=== PATIENT | female | born 1965 | race Two or more races ===

== ENCOUNTER 2024-07-17 21:15 | Emergency (ER) | payer OTHER ==
[~2024-07-17] VITALS: Ht 157.5 cm; Wt 68.9 kg
[2024-07-17] MEDS ORDERED: CEFTRIAXONE SODIUM 1,000 MG VIAL IM STA (21:53)
[2024-07-17] MEDS ORDERED: KETOROLAC TROMETHAMINE 15 MG VIAL IM STA (21:53)
== END 2024-07-17 22:52 | disposition home or self-care (01) ==
LOC: ER 21:17
DX: K04.4 Acute apical periodontitis of pulpal origin (principal); Z91.013 Allergy to seafood

== ENCOUNTER 2024-07-18 18:48 | Emergency (ER) | payer OTHER ==
[~2024-07-18] VITALS: Ht 167.6 cm; Wt 68.0 kg
[2024-07-18] MEDS ORDERED: PIPERACILLIN/TAZOBACTAM SODIUM 3.375 GM VIAL IV STA (19:58)
[2024-07-18] MEDS ORDERED: VANCOMYCIN HCL 1,000 MG VIAL IV STA (20:01)
[2024-07-18] MEDS ORDERED: DEXTROSE 5 % AND 0.9 % NACL 1,000 ML IV STA (20:03)
[2024-07-18] MEDS ORDERED: KETOROLAC TROMETHAMINE 15 MG VIAL IV SCH (20:15)
[2024-07-18 21:15] LABS: HEMATOCRIT 33.7 % (36.0-45.00); HEMOGLOBIN 11.7 g/dL (12.0-15.00); MEAN CELL VOLUME 84.1 fL (80.00-100.00); MEAN CORPUSCULAR HEMOGLOBIN 29.2 pg (27.00-32.0); MEAN CORPUSCULAR HGB CONC 34.7 g/dl (32.0-36.0); PLATELET COUNT 251 K/uL (150-450); RED BLOOD COUNT 4.01 M/uL (4.00-6.00); RED CELL DISTRIBUTION WIDTH 14.1 % (11.5-14.5)
[2024-07-18 21:27] LABS: PH,URINE 5.5 (5.0-8.0); URINE APPEARANCE Clear; URINE BILIRRUBIN Negative (NEGATIVE); URINE BLOOD Negative; URINE COLOR Yellow; URINE GLUCOSE Negative (NEGATIVE); URINE LEUKOCYTE Negative; URINE NITRATE Negative; URINE PROTEIN Negative (NEGATIVE); URINE UROBILINOGEN 0.2 E.U./dl
[2024-07-18 21:31] LABS: URINE BACTERIA 2774.5 uL (0.0-1933); URINE EPITHELIAL CELLS 66.7 uL (0.0-38.8); URINE RBC 5.6 uL (0.0-20.8); URINE WBC 19.4 uL (0.0-23.2)
[2024-07-18 21:48] LABS: CALCIUM 9.7 mg/dL (8.5-10.1); CREATININE SERUM 0.73 mg/dL (0.55-1.02); GFR 82.17; POTASSIUM 3.83 mEq/L (3.5-5.1)
[2024-07-18 21:52] LABS: URINE CAST 0.45 uL (0.0-1.40); URINE KETONE 40 (NEGATIVE)
[2024-07-19 07:21] VITALS: BP 122/75; O2SAT 100
[2024-07-19] MEDS ORDERED: VANCOMYCIN HCL 1,000 MG VIAL IV ONE (09:15)
[2024-07-19] MEDS ORDERED: DEXAMETHASONE SODIUM PHOSP/PF 10 MG/ML VIAL IV ONE (09:15)
[2024-07-19] MEDS ORDERED: KETOROLAC TROMETHAMINE 15 MG VIAL IV ONE (09:15)
== END 2024-07-19 12:32 | disposition home or self-care (01) ==
LOC: ER 18:50
PROVIDERS: Emergency Medicine
DX: K04.7 Periapical abscess without sinus (principal); Z88.8 Allergy status to other drugs, medicaments and biological substances

== ENCOUNTER → 2024-09-28 | Emergency (ER) | payer OTHER ==
[~2024-09-28] VITALS: Ht 157.5 cm; Wt 62.6 kg
== END | disposition left against medical advice (07) ==
LOC: ER 00:41
DX: Z53.21 Procedure and treatment not carried out due to patient leaving prior to being seen by health care provider (principal)

== ENCOUNTER 2024-11-10 08:09 | Emergency (ER) | payer OTHER ==
[~2024-11-10] VITALS: Ht 157.5 cm; Wt 62.6 kg
[2024-11-10] MEDS ORDERED: ORPHENADRINE CITRATE 30 MG/ML AMPUL IM STA (08:44)
[2024-11-10] MEDS ORDERED: KETOROLAC TROMETHAMINE 15 MG VIAL IM STA (08:44)
[2024-11-10] MEDS ORDERED: ADVIL DUAL ACT1 EACH PO (09:13)
[2024-11-10] MEDS ORDERED: METAXALONE800 MG PO (09:13)
== END 2024-11-10 09:59 | disposition home or self-care (01) ==
LOC: ER 08:11
DX: M54.42 Lumbago with sciatica, left side (principal); Z88.8 Allergy status to other drugs, medicaments and biological substances; Z87.09 Personal history of other diseases of the respiratory system

== ENCOUNTER 2025-03-08 21:58 | Emergency (ER) | payer OTHER ==
[~2025-03-08] VITALS: Ht 157.5 cm; Wt 63.5 kg
[~2025-03-08 21:58] MED LIST: ADVIL DUAL ACT1 EACH PO; METAXALONE800 MG PO
[2025-03-09] MEDS ORDERED: KETOROLAC TROMETHAMINE 60 MG VIAL IM STA (04:17)
[2025-03-09] MEDS ORDERED: hydrOXYzine PAMOATE 50 MG CAPSULE PO STA (04:18)
[2025-03-09] MEDS ORDERED: DEXAMETHASONE SODIUM PHOSPHATE 4 MG/ML VIAL IM STA (04:18)
== END 2025-03-09 04:47 | disposition home or self-care (01) ==
LOC: ER 22:30
DX: M25.561 Pain in right knee (principal); R51.9 Headache, unspecified; Z91.013 Allergy to seafood; Z88.8 Allergy status to other drugs, medicaments and biological substances